=== PATIENT | female | born 1995 | race Caucasian/White ===

== ENCOUNTER 2023-03-07 17:26 | Emergency (ER) | payer BC ==
[~2023-03-07] VITALS: Ht 167.6 cm; Wt 100.7 kg
[~2023-03-07 17:26] MED LIST: SULF-59 PO
[2023-03-07 17:53] VITALS: BP 144/72; PULSE 86; RESP 20; TEMP 97.9; O2SAT 100
[2023-03-07 18:22] VITALS: O2SAT 100
[2023-03-07 19:10] VITALS: PULSE 86; RESP 20; TEMP 97.9
[2023-03-07] MEDS ORDERED: BACTO TP (19:31)
[2023-03-07] MEDS ORDERED: ACET-5629 PO (19:34)
[2023-03-07] MEDS ORDERED: HYDROcodone/APAP 10/325 MG 1 TAB TAB PO ONE (19:35)
[2023-03-07 19:56] VITALS: BP 104/74; O2SAT 97
== END 2023-03-07 19:50 | disposition home or self-care (01) ==
LOC: MED 17:26
DX: T81.49XA Infection following a procedure, other surgical site, initial encounter (principal); Z98.890 Other specified postprocedural states; Z79.899 Other long term (current) drug therapy; Y83.4 Other reconstructive surgery as the cause of abnormal reaction of the patient, or of later complication, without mention of misadventure at the time of the procedure; Y92.89 Other specified places as the place of occurrence of the external cause
CPT/HCPCS: 99283